=== PATIENT | female | born 1980 | race Caucasian/White ===

== ENCOUNTER → 2024-07-08 | Day surgery (SDC) | payer OTHER ==
[~2024-07-08] MED LIST: ACETAMINOPHEN 1000 MG/100 ML 100 ML IV ONE; ACETAMINOPHEN/CODEINE 300MG - 30MG TAB ONE; BENTYL PO; CALCIUM ACETAT667 MG PO; DEXAMETHASONE SOD PHOS INJ 4 MG/ML SDV ONE; FENTANYL CITRATE/PF 100MCG/2 ML INJ ONE; LIDOCAINE HCL 2% LOCAL INJ 5 ML SDV VIAL INJ ONE; OMEPRAZOLE40 MG PO; PROPOFOL IV EMULSION 10 MG/ML 20 ML VIAL ONE; ROCURONIUM BROMIDE 1 ML IV ONE; SEVOFLURANE INHAL SOLN 250 ML PEN BTL ONE; SUCCINYLCHOLINE CHLORIDE 20 MG/ML 10ML VIAL ONE; SUGAMMADEX SODIUM 200 MG/2 ML VIAL IV ONE; VIT B12 PO; VIT D3-VIT K21 EACH PO
[2024-07-08] MEDS: LACTATED RINGER'S 1,000 ML ONE (10:09)
[2024-07-08 12:31] VITALS: TEMP 97.2
[2024-07-08] MEDS: LABETALOL HCL 5 MG/ML 20ML VIAL IV ONE (13:03)
[2024-07-08] MEDS: ACETAMINOPHEN/CODEINE 300MG - 30MG TAB PO ONE (13:12)
[2024-07-08 13:42] VITALS: BP 170/98; PULSE 66; RESP 18; O2SAT 99
== END | disposition home or self-care (01) ==
LOC: OR 08:32
PROVIDERS: ATTEND Otolaryngology Otolaryngology/Facial Plastic Surgery
DX: J34.2 Deviated nasal septum (principal); J34.89 Other specified disorders of nose and nasal sinuses; E66.01 Morbid (severe) obesity due to excess calories; G89.29 Other chronic pain; M06.9 Rheumatoid arthritis, unspecified; K50.90 Crohn's disease, unspecified, without complications; F41.9 Anxiety disorder, unspecified; Z91.041 Radiographic dye allergy status; Z79.899 Other long term (current) drug therapy
CPT/HCPCS: 30520; 88302; 88311; J0131; J0330; J1100; J2003; J2704; J3010; J3490; J7121; 88300